=== PATIENT | female | born 1995 | race Caucasian/White ===

== ENCOUNTER 2017-11-02 19:04 | Inpatient (IN) | payer OTHER ==
[2017-11-02] MEDS ORDERED: Acetaminophen 500 MG TAB PO PRN (19:40)
[2017-11-02] MEDS ORDERED: Carboprost 250 MCG/ML AMP IM PRN (19:40)
[2017-11-02] MEDS ORDERED: Ondansetron HCl/PF 4 MG/2 ML Vial IVP PRN (19:40)
[2017-11-02] MEDS ORDERED: Methylergonovine 0.2 MG/ML VIAL IM PRN (19:40)
[2017-11-02] MEDS ORDERED: HYDROcodone/Acetaminophen 5/325 mg Tablet PO PRN (19:40)
[2017-11-02] MEDS ORDERED: Zolpidem Tartrate 5 MG TAB PO PRN (19:40)
[2017-11-02] MEDS ORDERED: LR / Pitocin 40 units/1000 ml 1,000 ML IV PRN (19:40)
[2017-11-02] MEDS ORDERED: Diphenoxylate HCl/Atropine Tablet PO PRN (19:40)
[2017-11-02] MEDS ORDERED: Misoprostol 200 MCG TAB PR PRN (19:40)
[2017-11-02] MEDS ORDERED: Lidocaine 1% (PF) 30 ML VIAL SC PRN (19:40)
[2017-11-02] MEDS ORDERED: Ibuprofen 800 MG TAB PO PRN (19:40)
[2017-11-02] MEDS ORDERED: Promethazine HCl 25 MG/ML VIAL IM PRN (19:40)
[2017-11-02] MEDS ORDERED: LR 500 ML/Oxytocin 10 units 500 ML IV SCH (19:45)
[2017-11-02 19:58] VITALS: BMI 25.8
[2017-11-02] MEDS: Lactated Ringer's 1,000 ML IV SCH (20:20)
[2017-11-02 20:46] LABS: Mean Corpuscular HGB CONC 34.5 g/dL (32.0-36.0); Mean Corpuscular Hemoglobin 34.5 pg (25.0-35.0); Mean Platelet Volume 8.5 fL (7.4-10.4); Platelet Count 206 thou/uL (130-400); RBC Distribution Width 12.7 % (11.5-14.5); Red Blood Cell (RBC) Count 4.05 mill/uL (4.00-5.20); White Blood Cell (WBC) Count 9.1 thou/uL (4.8-10.8)
[2017-11-02 21:21] LABS: Syphilis Antibody Nonreactive (Nonreactive); Syphilis Antibody Index 0.02 S/CO (<1.00 Non-Reactive)
[2017-11-02] MEDS: Misoprostol 100 MCG TAB VAG SCH (21:37)
[2017-11-02 22:51] LABS: HBSAg Index 0.15 S/CO (0-0.99); HIV (1/2) Antibody/Antigen Non-Reactive (NonReactive); HIV 1/2 INDEX 0.21 S/CO (<1.00); Hep B Surf Ag Non-Reactive S/CO (NonReactive)
[2017-11-03] MEDS: Misoprostol 100 MCG TAB VAG SCH ×5 (01:26→15:43)
[2017-11-03] MEDS: Lactated Ringer's 1,000 ML IV SCH ×3 (03:40→12:47)
--- NOTE | 2017-11-03 08:55 | PDOC.LDHP ---
Labor and Delivery H&P Chief complaint: scheduled induction HPI: 22yo at 40w0d here for elective IOL. No complaints. good FM. No VB LOF. Current gestational age (weeks): 40 Due date: 11/03/17 Dating criteria: last menstrual period Grav: 1 Para: 0 Current complications: none Abnormal US findings: No Past Medical History: denies Current medications: pre-mono vitamins Previous surgical history: none Allergies/Adverse Reactions: Allergies Allergy/AdvReac Type Severity Reaction Status Date / Time No Known Allergies Allergy Unverified 11/02/17 19:51 Social history: none - Physical Exam Vital signs reviewed and normal: yes General: NAD Heart: RRR Lungs: CTAB Abdomen: gravid Extremeties: no edema FHT: category 1 Moraine contractions every: q1min - Vaginal Exam cm dilated: 2 Effacement: 75% Station: -2 (AROM clear) - OB Labs RH: positive Antibody Screen: negative HIV: negative RPR: negative HEPSAg: negative 1 hour GCT: negative GBS: negative Urine drug screen: negative Rubella: immune - Assessment L&D Assessment: elective induction at term - Plan Plan: admit to L&D, labor augmentation if indicated, informed consent obtained, anesthesia consult for pain management
[2017-11-03] MEDS ORDERED: Bupivacaine 0.5% 20 ML, Fentanyl 400 MCG in Sodium Chloride 0.9% 72 ML EPIDURAL SCH (10:15)
[2017-11-03] MEDS ORDERED: Lactated Ringer's 500 ML IV PRN (10:56)
[2017-11-03] MEDS ORDERED: Eucerin (Mineral Oil/Petrolatum,White) 30 gm Jar TOP PRN (10:56)
[2017-11-03] MEDS ORDERED: Promethazine HCl 25 MG/ML VIAL IM PRN (10:56)
[2017-11-03] MEDS ORDERED: Naloxone HCl 0.4 mg/ml Vial IVP PRN ×2 (10:56)
[2017-11-03] MEDS ORDERED: Acetaminophen 325 MG TAB PO PRN (10:56)
[2017-11-03] MEDS ORDERED: ePHEDrine/0.9% NaCl/PF SYRINGE 50 mg/10 ml SLOW IVP PRN (10:56)
[2017-11-03] MEDS ORDERED: Ondansetron HCl/PF 4 MG/2 ML Vial IVP PRN ×2 (10:56→22:48)
[2017-11-03] MEDS ORDERED: diphenhydrAMINE 50 MG/ML VIAL IVP PRN (10:56)
[2017-11-03] MEDS ORDERED: Communication Order-Pharmacy FS SCH (11:00)
[2017-11-03] MEDS ORDERED: Fentanyl 4mcg/Marcaine 0.1% Cassette 100 ML EPIDURAL SCH (11:00)
--- NOTE | 2017-11-03 18:44 | PDOC.OPDEL ---
OB Operative/Delivery Note Delivery Dr/Surgeon: Leonard Assist: n/a Pre-Delivery Diagnosis: elective induction Procedure/Post Delivery Dx: spontaneous vaginal delivery Weeks gestation: 40 Anesthesia: epidural - Findings A Sex: male - 1 min: 7 - 5 min: 9 - Additional Findings/Plan Placenta delivered: spontaneous Repaired Obstetrical Laceration: 1st degree (repaired with 2-0 vicryl) Estimated blood loss: 400 Compilations/Other Findings: NC x 1 reduced Post delivery plan: routine recovery
[2017-11-03] MEDS ORDERED: Milk Of Magnesia 30 ML UDCUP PO PRN (22:48)
[2017-11-03] MEDS ORDERED: Adacel (T-DAP) 0.5 ML VIAL IM ONE (22:48)
[2017-11-03] MEDS ORDERED: Preparation H Ointment 28 GM TUBE PR PRN (22:48)
[2017-11-03] MEDS ORDERED: Lanolin Ointment 7 GM TUBE TOP PRN (22:48)
[2017-11-03] MEDS ORDERED: Benzocaine/Menthol 20-0.5% 60 ML CAN TOP PRN (22:48)
[2017-11-03] MEDS ORDERED: HYDROcodone/Acetaminophen 5/325 mg Tablet PO PRN ×2 (22:48)
[2017-11-03] MEDS ORDERED: LR / Pitocin 40 units/1000 ml 1,000 ML IV SCH (22:48)
[2017-11-03] MEDS ORDERED: diphenhydrAMINE 25 MG CAP PO PRN (22:48)
[2017-11-03] MEDS ORDERED: Bisacodyl 10 MG SUPP PR PRN (22:48)
[2017-11-03] MEDS ORDERED: Ibuprofen 800 MG TAB PO SCH (23:00)
[2017-11-03] MEDS: Ibuprofen 800 MG TAB PO SCH (23:28)
[2017-11-03] MEDS: Docusate Calcium (SURFAK) 240 MG CAP PO SCH (23:28)
[2017-11-04] MEDS: Ibuprofen 800 MG TAB PO SCH ×3 (05:57→21:28)
[2017-11-04] MEDS: Ferrous Sulfate 325 MG TAB PO SCH ×2 (07:59→14:21)
[2017-11-04] MEDS: Prenatal Vitamin 1 TAB PO SCH (08:01)
[2017-11-04] MEDS: Docusate Calcium (SURFAK) 240 MG CAP PO SCH ×2 (08:02→21:28)
[2017-11-04] MEDS ORDERED: Docusate Calcium (SURFAK) 240 MG CAP PO SCH (08:15)
--- NOTE | 2017-11-04 12:56 | PDOC.PP ---
Post Progress Note Post Day #: 1 Subjective: doing well, working on latch issues, min bleeding PO intake tolerated: yes Flatus: yes Ambulation: yes Vital Signs (12 hours) Temp Pulse Resp BP 11/04/17 11:25 98.0 F 84 16 119/68 11/04/17 08:00 98.7 F 87 20 110/72 11/04/17 07:35 98.7 F 87 20 11/04/17 04:00 98.1 F 92 20 113/56 L Weight Weight 128 lb - Physical Examination General: NAD Respiratory: non-labored breathing Abdominal: no distention Fundus firm & at: below umb Extremities: negative homans (B) Skin: no rash Neurological: no gross focal deficits Psychiatric: A&Ox3 Result Diagrams: 11/02/17 20:12 Additional Labs: Post Labs Blood Type O POSITIVE 11/02/17 20:12 Hep Bs Antigen Non-Reactive S/CO (NonReactive) 11/02/17 20:12 (1) Vaginal delivery Code(s): O80 - ENCOUNTER FOR FULL-TERM UNCOMPLICATED DELIVERY Status: Acute - Assessment/Plan PPD1, doing well, will plan for LC today. Likely DC tomorrow.
[2017-11-05] MEDS: Ibuprofen 800 MG TAB PO SCH ×2 (06:26→15:08)
[2017-11-05 08:43] VITALS: BP 103/71; TEMP 98
--- NOTE | 2017-11-05 08:47 | PDOC.PP ---
Post Progress Note Post Day #: 2 PO intake tolerated: yes Flatus: yes Ambulation: yes Vital Signs (12 hours) Temp Pulse Resp BP Pulse Ox 11/05/17 08:42 98.0 F 85 16 103/71 99 11/05/17 00:00 97.9 F 79 18 108/71 11/04/17 21:20 98.7 F 109 H 20 116/75 Weight Weight 128 lb - Physical Examination General: NAD Cardiovascular: RRR Respiratory: non-labored breathing Abdominal: no distention, appropriately TTP Fundus firm & at: umb Neurological: no gross focal deficits Psychiatric: normal affect Result Diagrams: 11/02/17 20:12 Additional Labs: Post Labs Blood Type O POSITIVE 11/02/17 20:12 Hep Bs Antigen Non-Reactive S/CO (NonReactive) 11/02/17 20:12 (1) Vaginal delivery Code(s): O80 - ENCOUNTER FOR FULL-TERM UNCOMPLICATED DELIVERY Status: Acute - Assessment/Plan VSSAF Doing well no issues, lochia decr Rh pos RImm - some difficulty with latch, LC ordered DC home FU 6 wk
[2017-11-05] MEDS: Prenatal Vitamin 1 TAB PO SCH (09:40)
[2017-11-05] MEDS: Docusate Calcium (SURFAK) 240 MG CAP PO SCH (09:41)
[2017-11-05] MEDS: Ferrous Sulfate 325 MG TAB PO SCH (09:54)
--- NOTE | 2017-11-06 14:28 | DIS ---
ADMISSION DIAGNOSES: 1. Intrauterine 40 weeks and 0 days. 2. Elective induction. DISCHARGE DIAGNOSES: Status post spontaneous vaginal delivery. DISCHARGE CONDITION: Stable. ATTENDING PHYSICIAN: Vero Valle M.D. CONSULTATIONS: None. PROCEDURES: Spontaneous vaginal delivery. HISTORY AND PHYSICAL EXAMINATION: Please see previously dictated H&P. HOSPITAL COURSE: A 22-year-old G1, P0, presented for induction of labor electively and underwent Cyt otec followed by Pitocin induction, and went on to deliver a live born male weighing 8 pounds 2 ounces with Apgars of 7 and 9. The patient had a normal EBL and had no complications. she was and had a consult during her hospital stay and she was discharged stephanie e on day #2 with vital signs remaining within normal limits and she is given instructions to follow up in 6 weeks' postoperative time. No labs or studies are pending at the time of discharge.
== END 2017-11-05 16:28 | disposition home or self-care (01) | DRG 775 ==
LOC: L&D 19:04 → 3SW 11-03 22:45
PROVIDERS: ADMIT Student in an Organized Health Care Education/Training Program; ATTEND Student in an Organized Health Care Education/Training Program
PROC: 10E0XZZ Delivery of Products of Conception, External Approach (ICD-10-PCS; principal; 2017-11-03)
PROC: 0HQ9XZZ Repair Perineum Skin, External Approach (ICD-10-PCS; 2017-11-03)
DX: O70.0 First degree perineal laceration during delivery (principal); Z37.0 Single live birth; Z3A.40 40 weeks gestation of pregnancy
CPT/HCPCS: 36415; 51702; 85027; 86780; 87340; 87389; J0595; J2001; J2405; J3010; J3490; J7050; J7120